=== PATIENT | male | born 1965 | race Caucasian/White ===

== ENCOUNTER 2024-10-15 08:26 | Emergency (ER) | payer BC, SELFPAY ==
[2024-10-15 08:27] VITALS: BP 130/87
[2024-10-15] MEDS: ZOFRAN 4 MG IV (09:17)
[2024-10-15 09:27] VITALS: BP 126/72
[2024-10-15] MEDS: ANTIVERT 25 MG PO (09:29)
[2024-10-15 09:40] LABS: % Basophils 0.4 % (0-2); % Immature Granulocytes 1.1 % (0-0.5); % Lymphocytes 13.7 % (20.5-51.1); % Monocytes 5.5 % (1.7-9.3); % Neutrophils 79.3 % (42.2-75.2); Absolute Basophils 0.1 10^3/uL (0-0.2); Absolute Immature Granulocytes 0.2 10^3/uL (0-0.05); Absolute Monocytes 0.8 10^3/uL (0.1-0.6); Absolute Neutrophils 11.6 10^3/uL (1.4-6.5); Hematocrit 49.7 % (39.0-52.0); Hemoglobin 16.9 g/dL (13.0-18.0); Mean Corpuscular Hgb 30.8 pg (27.0-31.0); Mean Corpuscular Volume 90.5 fL (80.0-94.0); Mean Platelet Volume 10.1 fL (7.4-10.4); Nucleated Red Blood Cells % 0 % (-); Platelet Count 251 10^3/uL (130-400); Red Blood Cell Count 5.49 10^6/uL (4.70-6.10); Red Cell Dist. Width 12.2 % (11.5-14.5); White Blood Cell Count 14.6 10^3/uL (4.8-10.8)
--- NOTE | 2024-10-15 09:48 | ED.GENMED ---
History of Present Illness
<Lashaun Duque PA-C - Last Filed: 10/15/24 15:34>
General
Chief Complaint: Dizziness
Source: patient
Exam Limitations: none
Time Seen by Provider: 10/15/24 08:38
Nursing documentation reviewed up to this point in time: agreed with
History of Present Illness
History of Present Illness:
pt is a 59 y/o M with h/o HLD
former alcohol quit 6 years ago
says about 3 days ago he started having pressure in his ears and some ringing and went to PCP who said he had fluid in his ears, started medrol dose kevin and took 2 dasy worth
woke up this rahulniaide charles felt lightheaded and nauseated
tried to eat and felt nausea worsen
he just doesn't feel right, cannot really explain it, as if he may pass out but also dizzy; but not room spinning dizziness
no neck givens, headache, vision changes, cp, sob, vomiting, diarrhea, sore throat, congestion
pt has never had vertigo before
he has chronically low resting HR
even in the ppc office 2 days ago hr 50s
no cp, sob.
Past History
<Lashaun Duque PA-C - Last Filed: 10/15/24 15:34>
Past History
ED Past Medical History: Hypercholesterolemia and Other (Pancreatitis); Negative Asthma, HTN or NIDDM
ED Past Surgical History: None
Social History
Tobacco: Non-smoker
Alcohol: Former
Drug: None
Personal:
Living: with family
Employment: Employed
Review of Systems
<Lashaun Duque PA-C - Last Filed: 10/15/24 15:34>
Review of Systems
Allergies reviewed?: Yes
All Other Systems: Not applicable
Phy Exam
<Lashaun Duque PA-C - Last Filed: 10/15/24 15:34>
Physical Exam
Physical Exam:
GENERAL: Alert ,appears not well
HEAD: NCAT
EYE: pupils equal and reactive, no nystagmus, no photophobia
NECK: Supple,full rom, nontender
ENT: o/p clr, dry mouth; R tm mild fluid no erythema L tm retracteed, small bupm that is whitich that appears like cholesteatoma or scar
no blood.
CARDIAC bradycardia, no murur. no edema
LUNGS: Clear breath sounds bilaterally, no acute respiratory distress, no wheezes/rales/rhonchi
ABDOMEN: Soft, without focal tenderness, no r/g, no cvat
NEUROLOGICAL: Alert and orientedx 4, cn intact, no facial asymmetry, 5/5 strength in UE/LE, sensation intact, romberg neg, , neg pronator drift
JAMES HALLPIKE: SYMPTOMS WORSE BUT NO BVIOUS NYSTAGMUS
SKIN: Warm and dry, skin intact.
MUSCULOSKELETAL: No edema, well perfused.
PSYCH: Normal and appropriate interaction.
Course
<Lashaun Duque PA-C - Last Filed: 10/15/24 15:34>
Orders/Labs/Results
Orders:
Orders
10/15/24 08:50
Electrocardiogram (*1) Urgent
Reason for Study: Vertigo / Dizzy
EKG- Treatment ONCE
10/15/24 08:51
Orthostatic VS- Treatment ONCE
Meclizine [Antivert] 25 mg PO NOW STA
Ondansetron Injectable [Zofran] 4 mg IV NOW STA
10/15/24 08:54
CT Head W/o Iv Contrast Urgent
Comment:
Reason For Exam: dizziness
Orthostatic VS- Treatment ONCE
10/15/24 09:20
Complete Blood Count/With Diff Urgent
Comprehensive Metabolic Panel Urgent
Troponin I Urgent
10/15/24 09:26
COVID-19 Antigen Urgent
Source: Nasal Swab
10/15/24 09:33
diazePAM [Valium Injection] 5 mg IV NOW STA
Abnormal Lab Results
10/15/24
09:20
WBC 14.6 H 10^3/uL
(4.8-10.8)
Abs Immat Gran (auto) 0.2 H 10^3/uL
(0-0.05)
Absolute Neuts (auto) 11.6 H 10^3/uL
(1.4-6.5)
Absolute Monos (auto) 0.8 H 10^3/uL
(0.1-0.6)
Immature Gran % 1.1 H %
(0-0.5)
Neutrophils % 79.3 H %
(42.2-75.2)
Lymphocytes % 13.7 L %
(20.5-51.1)
Glucose 118 H mg/dl
(70-99)
10/15/24 09:20
10/15/24 09:20
Vital Signs
Initial and Last Documented VS:
Initial Vital Signs
Temp Pulse Resp BP Pulse Ox
36.6 C 53 16 130/87 98
10/15/24 08:27 10/15/24 08:27 10/15/24 08:27 10/15/24 08:27 10/15/24 08:27
Last Documented Vital Signs
Temp Pulse Resp BP Pulse Ox
36.6 C 49 8 128/75 96
10/15/24 08:27 10/15/24 10:30 10/15/24 10:30 10/15/24 10:00 10/15/24 10:30
Shiralt;Johnie Burks, - Last Filed: 10/15/24 12:36>
Orders/Labs/Results
Orders:
Orders
10/15/24 08:50
Electrocardiogram (*1) Urgent
Reason for Study: Vertigo / Dizzy
EKG- Treatment ONCE
10/15/24 08:51
Orthostatic VS- Treatment ONCE
Meclizine [Antivert] 25 mg PO NOW STA
Ondansetron Injectable [Zofran] 4 mg IV NOW STA
10/15/24 08:54
CT Head W/o Iv Contrast Urgent
Comment:
Reason For Exam: dizziness
Orthostatic VS- Treatment ONCE
10/15/24 09:20
Complete Blood Count/With Diff Urgent
Comprehensive Metabolic Panel Urgent
Troponin I Urgent
10/15/24 09:26
COVID-19 Antigen Urgent
Source: Nasal Swab
10/15/24 09:33
diazePAM [Valium Injection] 5 mg IV NOW STA
Abnormal Lab Results
10/15/24
09:20
WBC 14.6 H 10^3/uL
(4.8-10.8)
Abs Immat Gran (auto) 0.2 H 10^3/uL
(0-0.05)
Absolute Neuts (auto) 11.6 H 10^3/uL
(1.4-6.5)
Absolute Monos (auto) 0.8 H 10^3/uL
(0.1-0.6)
Immature Gran % 1.1 H %
(0-0.5)
Neutrophils % 79.3 H %
(42.2-75.2)
Lymphocytes % 13.7 L %
(20.5-51.1)
Glucose 118 H mg/dl
(70-99)
10/15/24 09:20
10/15/24 09:20
Vital Signs
Initial and Last Documented VS:
Initial Vital Signs
Temp Pulse Resp BP Pulse Ox
36.6 C 53 16 130/87 98
10/15/24 08:27 10/15/24 08:27 10/15/24 08:27 10/15/24 08:27 10/15/24 08:27
Last Documented Vital Signs
Temp Pulse Resp BP Pulse Ox
36.6 C 49 8 128/75 96
10/15/24 08:27 10/15/24 10:30 10/15/24 10:30 10/15/24 10:00 10/15/24 10:30
<Lashaun Duque PA-C - Last Filed: 10/15/24 15:34>
MDM/Problems Addressed
Differential Diagnosis Includes:
vertigo, labyrithritis, ich, ,near syncope, electrolyte disturbance
MDM/Problems Addressed:
59 y/o M with vague lightheadedniess and nausea today
feels worse sitting up
has not passed out
also doesn't describe as room spinning dizziness
saw pcp for ringing in ears and fullness 3 days ago and was told he had fluid,, on medrol
pt has no hearing loss
no headache, no confusion, no other neuro symptoms
he is chronically having a low resting hr 50s
no bb
on exam no focal findings but appears uncomfortable, mostly due to nausea it seems
he has a small cyst or white lesion in his L TM that could be cholesteatoma or a scar
no neck pain
able to turn head in strecher but just really doesn't feel well overall
neuro intact
d/w ed attending who also saw pt
labs, ct, ekg, trop: he does have mild leukocytosis probably related to steroids
ct head neg, normal sinuses
had minimal relief from meclizine but moderate to significant relief with iv valium
able to open eyes, able to walk steadily odwn the issa
hr up to 50s when walking
down to 40s after valium, sinus
orthostatics neg
d/w dr. english from ent who agreed with valium and steorids and f/u int he office.
<Lashaun Duque PA-C - Last Filed: 10/15/24 15:34>
*Critical Care Note
Total Time (30-74mins, 75-104mins- exclusive of procedures): Not Applicable
ED Attending Note
<Lashaun Duque PA-C - Last Filed: 10/15/24 15:34>
-
Portions of this chart may have been created with voice recognition software.� Occasional wrong word or��sound alike� substitutions may have occurred due to the inherent limitations of voice recognition software.
<Johnie Burks DO - Last Filed: 10/15/24 12:36>
ED Attending Note
Patient seen and examined by attending physician: Yes
I performed the substantive portion of visit, reviewed & personally made and approve the management plan that is documented in note by myself or BIBIANA.: Yes
ED Attending Note:
I evaluated the patient after patient was treated here in the emergency department. Overall he is doing significantly better. His finger-nose testing is unremarkable. He is able to walk without any significant difficulty. Nonspecific ST
abnormality noted on EKG and is in a sinus bradycardia.
Discharge Plan
Departure
Patient Disposition: Home (Routine Discharge)
Date of Disposition: 10/15/24
Time of Disposition: 12:35
Patient with high blood pressure during this ER visit?: No
Condition: Fair
Covid-19: Not Applicable
Discharge Problem:
Vertigo, Acute labyrinthitis
Instructions: Vertigo (a Type of Dizziness) (DC)
Prescriptions:
New
diazepam [Valium] 5 mg tablet
5 mg PO TID PRN (Reason: dizziness) Qty: 10 0RF
ondansetron 4 mg tablet,disintegrating
4 mg PO Q8H PRN (Reason: nausea and vomiting) 2 Days Qty: 5 0RF
No Action
atorvastatin 10 mg tablet
10 mg PO DAILY
methylprednisolone 4 mg tablets,dose pack
24 mg PO UD
Patient Comments:
10/15/24: medrol dose kevin dispensed 10/13
Referrals:
Severiano English MD [Active] - Follow up in 2-3 days (call for appt and tell them you were in the ER)
Dada Patterson MD [Family Provider] - Follow up in 1 week
Activity Restrictions/Additional Instructions:
YOUR SYPMTOMS ARE LIKELY DUE TO AN INNER EAR PROBLEM
CONTINUE TH ESTEROIDS
TAKE VALIUM 5 MG EVERY 8 HOURS (3 TIMES A DAY) FOR 2 DAYS THEN ONLY NEEDED
FOLLOW UP WITH EAR NOSE AND THROAT THIS WEEK OR NEXT
MAKE SURE TO AVOID SUDDEN TURNING OF YOUR HEAD OR BENDING OVER FOR A FEW DAYS
RETURN FOR: SEVERE PAIN(HEADACHE), VISION CHANGES, INABILITY TO WALK, VOMITING, WEAKNESS/NUMBNESS IN ARMS OR LEGS, OR ANY CONCERNS
Interventions
Interventions:
*Risk Screen - Suicide Last Done: 10/15/24 08:27
*General Assessment Last Done: 10/15/24 09:21
*Neglect/Abuse Screening Last Done: 10/15/24 08:27
ED- Fall Risk Assessment Last Done: 10/15/24 09:21
*ED COVID-19 Vaccine History Last Done: 10/15/24 09:21
*Nursing Disposition Last Done: 10/15/24 12:47
ED- Neurological Assessment Last Done: 10/15/24 09:21
ED- Cardiac Assessment Last Done: 10/15/24 09:21
Discharge Date and Time
Discharge Date/Time: 10/15/24 12:48
Print Language: FRISIAN
[2024-10-15 09:50] LABS: ALT (SGPT) 40 U/L (0-50); AST (SGOT) 26 U/L (17-59); Albumin 4.9 g/dl (3.5-5.0); Alkaline Phosphatase 56 U/L (38-126); Blood Urea Nitrogen 16 mg/dl (9-20); Calcium 9.8 mg/dl (8.4-10.2); Carbon Dioxide 22 mmol/L (22-30); Chloride 104 mmol/L (98-107); Glucose 118 mg/dl (70-99); Potassium 4.3 mmol/L (3.5-5.1); Sodium 142 mmol/L (135-145); Total Bilirubin 0.4 mg/dl (0.2-1.3); Total Protein 7.5 g/dl (6.3-8.2); eGFR > 60.00
[2024-10-15] MEDS: VALIUM INJECTION 5 MG IV (09:53)
[2024-10-15 09:56] VITALS: BP 130/78
[2024-10-15 09:56] LABS: COVID-19 Antigen Negative (Negative)
[2024-10-15 09:57] VITALS: BMI 31.2
[2024-10-15 10:00] VITALS: BP 128/75
[2024-10-15 10:01] LABS: Troponin I < 0.012 ng/ml
[2024-10-15 11:13] VITALS: BP 121/74; BP 122/73; BP 132/85; PULSE 51; PULSE 53; PULSE 56
== END 2024-10-15 12:48 | disposition home or self-care (01) ==
LOC: EMR 08:26
PROVIDERS: Physician Assistant; EMERGENCY PHYSICIAN Emergency Medicine; FAMILY PHYSICIAN Internal Medicine
DX: R42 Dizziness and giddiness (principal); H83.09 Labyrinthitis, unspecified ear; E78.00 Pure hypercholesterolemia, unspecified
CPT/HCPCS: 99284; 96374; 96375; 70450; 80053; 84484; 85025; 87811; 93005